=== PATIENT | female | born 1945 | race Caucasian/White ===

== ENCOUNTER 2017-10-17 09:09 | Day surgery (SDC) | payer MEDICARE, OTHER ==
[~2017-10-17 09:09] MED LIST: LIDOCAINE HCL 1% MPF SOL ONE; PROPOFOL 500 MG/50 ML EMU IV ONE
[2017-10-17] MEDS ORDERED: FLEET ENEMA PR ONE (10:14)
[2017-10-17 11:45] VITALS: TEMP 96.8
[2017-10-17 14:09] VITALS: O2SAT 99
[2017-10-17 14:10] VITALS: BP 125/69; PULSE 67; RESP 18
== END 2017-10-17 12:50 | disposition home or self-care (01) | DRG 376 ==
LOC: SURG 09:09
PROVIDERS: ATTEND Surgery
DX: C18.7 Malignant neoplasm of sigmoid colon (principal)
CPT/HCPCS: J2001; J2704

== ENCOUNTER → 2017-11-09 | Day surgery (SDC) | payer MEDICARE, OTHER ==
[2017-11-09 07:08] VITALS: BP 137/71; PULSE 79; RESP 16; TEMP 97.1; O2SAT 97
== END | disposition home or self-care (01) | DRG 951 ==
LOC: SURG 06:53
PROVIDERS: ATTEND Surgery
DX: Z53.09 Procedure and treatment not carried out because of other contraindication (principal)

== ENCOUNTER 2017-11-16 06:40 | Day surgery (SDC) | payer OTHER ==
[2017-11-16] MEDS ORDERED: FENTANYL 100MCG/2ML SOL ONE (07:09)
[2017-11-16] MEDS ORDERED: PROPOFOL 500 MG/50 ML EMU IV ONE (07:10)
[2017-11-16] MEDS ORDERED: LIDOCAINE HCL 1% MPF SOL ONE ×2 (07:10→07:15)
[2017-11-16] MEDS ORDERED: BUPIVACAINE/EPI 0.5% 10 ML SOL INFIL ONE (07:16)
[2017-11-16] MEDS ORDERED: HEPARIN SODIUM 100 U/ML SOL IV ONE ×2 (07:28→07:52)
[2017-11-16] MEDS ORDERED: SODIUM CHLORIDE 20 ML 20 ML ONE (07:29)
[2017-11-16] MEDS ORDERED: CEFAZOLIN SODIUM 1 GM PDS ONE ×2 (08:37→08:38)
[2017-11-16 10:08] VITALS: BP 154/66; PULSE 57; RESP 18; TEMP 96; O2SAT 99
== END 2017-11-16 10:35 | disposition home or self-care (01) | DRG 376 ==
LOC: SURG 06:40
PROVIDERS: ATTEND Surgery
DX: C18.9 Malignant neoplasm of colon, unspecified (principal)
CPT/HCPCS: 71045; 76000; J0690; J1644; J3010; A6402; J2001; J2704